=== PATIENT | female | born 1995 | race Caucasian/White ===

== ENCOUNTER 2018-04-02 18:00 | Emergency (ER) | payer OTHER ==
--- NOTE | 2018-04-02 19:18 | ED ---
Psychiatric Complaint - HPI Summary HPI Summary: The patient is a 22 y/o F presenting to [facility] with a chief complaint of SI over the last few days. She states that over this past summer, she was seeing a local therapist in [place], and she has been treating her depression with antidepressants. She has never had SI before, but over the past 2-3 days, she has been having thoughts of overdosing on her antidepressants. She recently broke up with her boyfriend, which has aggravated her depression. She has been drinking EtOH to distract and minimize her symptoms. She came here because she wanted to feel safe. She denies HI at this time. She has no other past medical history. She attends [employer] but has not seen a provider there yet. - History Of Current Complaint Chief Complaint: EDMentalHealth Time Seen by Provider: 04/02/18 19:15 Hx Obtained From: Patient Onset/Duration: Sudden Onset, Lasting Days - last 2-3 days, Still Present Timing: Days Severity Initially: Moderate Severity Currently: Moderate Character: Depressed Aggravating Factor(s): Other - arguing and breaking up with boyfriend Alleviating Factor(s): Other - EtOH drinking Associated Signs And Symptoms: Positive: Negative Has Suicidal: Reports: Thoughts, With A Plan - overdosing on antidepressants - Allergies/Home Medications Allergies/Adverse Reactions: Allergies Allergy/AdvReac Type Severity Reaction Status Date / Time No Known Allergies Allergy Verified 04/02/18 18:23 Home Medications: Home Medications FLUoxetine CAP* [PROzac CAP*] 40 mg PO DAILY 04/02/18 [History Confirmed ] Norethindrone AC-Eth Estradiol [Megan 07/18 1-20 mg-Mcg] 1 tab PO DAILY 04/02/18 [History Confirmed 04/02/18] PMH/Surg Hx/FS Hx/Imm Hx Respiratory History: Denies: Hx Asthma Psychiatric History: Reports: Hx Depression - Immunization History Date of Tetanus Vaccine: < 10 years Immunizations Up to Date: Yes Infectious Disease History: No Infectious Disease History: Denies: Traveled Outside the [place] in Last 30 Days - Family History Known Family History: Negative: Hypertension, Diabetes - Social History Occupation: Student Alcohol Use: Daily Alcohol Amount: 2-3 drinks per day Substance Use Type: Reports: Marijuana Substance Use Comment - Amount & Last Used: Every day Smoking Status (MU): Current Some Day Smoker Review of Systems Negative: Fever Positive: Depressed, Other - POSITIVE: suicidal thoughts; NEGTAIVE: HI All Other Systems Reviewed And Are Negative: Yes Physical Exam - Summary Physical Exam Summary: Appearance: Well-appearing, Well-nourished, lying in bed comfortable Skin: Warm, dry, no obvious rash Eyes: sclera anicteric, no conjunctival pallor ENT: mucous membranes moist Neck: deferred Respiratory: No signs of respiratory distress Cardiovascular: Appears well perfused, pulses are nml Abdomen: deferred Musculoskeletal: Moving all 4 extremities without obvious discomfort Neurological: Awake and alert, mentation is normal, speech is fluent and appropriate Psychiatric: affect is normal, does not appear anxious or depressed Triage Information Reviewed: Yes Vital Signs On Initial Exam: Initial Vitals Temp Pulse Resp BP Pulse Ox 97.5 F 104 17 134/88 100 04/02/18 18:20 04/02/18 18:20 04/02/18 18:20 04/02/18 18:20 04/02/18 18:20 Vital Signs Reviewed: Yes Diagnostics - Vital Signs Vital Signs Temp Pulse Resp BP Pulse Ox 04/02/18 18:20 97.5 F 104 17 134/88 100 - Laboratory Result Diagrams: 04/02/18 19:56 04/02/18 19:56 Lab Statement: Any lab studies that have been ordered have been reviewed, and results considered in the medical decision making process. Course/Dx - Course Course Of Treatment: This is a young healthy woman with a history of depression , treated at her home in [place]. Since arriving back at school, her depressive symptoms of worsening and she is having some suicidal thoughts over the last few days, contemplating taking her antidepressants in an overdose attempt. She has no medical complaints, is otherwise healthy, and is medically clear at this time for mental health evaluation. - Differential Dx/Clinical Impression Provider Diagnosis: Depressive disorder - Physician Notifications Instructed by Provider To: Other - I spoke with MEJIA Smith, who agrees that the patient is medically clear and able to go home at 00:00. Discharge - Sign-Out/Discharge Documenting (check all that apply): Patient Departure - Patient will be discharged home. - Discharge Plan Condition: Good Disposition: HOME Patient Education Materials: Stress (ED), Depression (ED) Referrals: [facility] [Z.BUSINESS, APPLICATION, OTHER] - 3 Days - Billing Disposition and Condition Condition: GOOD Disposition: Home - Attestation Statements Document Initiated by Len: Yes Documenting Scribe: Deb Arriola Provider For Whom Len is Documenting (Include Credential): Dr. Hernán Mcghee MD Scribe Attestation: Deb Stephens scribed for Dr. Hernán Mcghee MD on 04/03/18 at 0307. Scribe Documentation Reviewed: Yes Provider Attestation: The documentation as recorded by the Deb rodríguez accurately reflects the service I personally performed and the decisions made by me, Dr. Hernán Mcghee MD
[2018-04-02 20:04] LABS: ABS Basophils 0 10^3/ul (0-0.2); ABS Eosinophils 0 10^3/ul (0-0.6); ABS Lymphocytes 1.9 10^3/ul (1.0-4.8); ABS Monocytes 0.5 10^3/ul (0-0.8); ABS Neutrophils 5.8 10^3/ul (1.5-7.7); ABS Nucleated RBC 0 10^3/ul; Eosinophil % 0.2 % (0-6); Hematocrit 45 % (35-47); Hemoglobin 15.5 g/dl (12.0-16.0); Lymphocyte % 22.9 % (25-47); Mean Corpuscular HGB Conc 34 g/dl (31-36); Mean Corpuscular Hemoglobin 34 pg (27-31); Mean Corpuscular Volume 98 fL (80-97); Nucleated Red Blood Cells % 0.1; Platelet Count 267 10^3/ul (150-450); Red Blood Count 4.63 10^6/ul (4.00-5.40); Red Cell Distribution Width 12 % (10.5-15); White Blood Count 8.3 10^3/ul (3.5-10.8)
[2018-04-02 20:28] LABS: EGFR Non-African American 136.7 (>60)
[2018-04-02 23:42] VITALS: BP 127/69
== END 2018-04-03 01:54 | disposition home or self-care (01) ==
LOC: ED 18:00
DX: F32.9 Major depressive disorder, single episode, unspecified (principal); F17.200 Nicotine dependence, unspecified, uncomplicated
CPT/HCPCS: 36415; 80053; 80320; 84702; 85025; 99284; G0480